=== PATIENT | male | born 1995 | race Caucasian/White ===

== ENCOUNTER → 2016-09-17 | Outpatient (CLI) | payer OTHER ==
--- NOTE | 2016-09-17 14:36 | REP ---
Chest two views HISTORY: Chest pain Comparison: None The lungs are clear. The heart is normal in size. The pulmonary vasculature is normal in appearance. The bony structure is intact. IMPRESSION: No acute disease. Signed by Casey Hanley MD 09/17/2016 02:27 P
== END ==
LOC: M WUC 12:17
PROVIDERS: ATTEND Internal Medicine
DX: R07.9 Chest pain, unspecified (principal)

== ENCOUNTER 2016-11-01 00:40 | Emergency (ER) | payer OTHER ==
[~2016-11-01] VITALS: Ht 180.3 cm; Wt 88.5 kg
[2016-11-01] MEDS ORDERED: NS 1,000 ML IV ONE (04:00)
[2016-11-01] MEDS ORDERED: KETOROLAC 30 MG/ML VIAL (J1885) IV ONE (04:00)
[2016-11-01] MEDS ORDERED: ONDANSETRON 4MG/2ML VIAL (J2405) IV ONE (04:00)
[2016-11-01 04:20] LABS: BASO % 0.1 % (0.0-1.0); EOS # 0.1 K/mm3 (0.0-0.50); EOS % 0.6 % (0.0-3.0); LARGE UNSTAINED CELL # 0.1 K/mm3 (0.0-0.4); LARGE UNSTAINED CELL % 0.5 % (0.0-4.0); LYMPH # 0.4 K/mm3 (1.5-6.5); LYMPH % 2.6 % (24.0-44.0); MEAN CORPUSCULAR HEMOGLOBIN 30.1 pg (27.0-33.0); MEAN CORPUSCULAR HGB CONC 35.8 g/dl (32.0-36.5); MEAN CORPUSCULAR VOLUME 84.2 fl (80.0-96.0); MONO # 0.4 K/mm3 (0.0-0.8); NEUTROPHILS # 12.5 K/mm3 (1.8-7.7); NEUTROPHILS % 93.1 % (36.0-66.0); PLATELET COUNT, AUTOMATED 228 k/mm3 (150-450); WHITE BLOOD COUNT 13.4 K/mm3 (4.0-10.0)
[2016-11-01 05:43] LABS: ALBUMIN 4.1 GM/DL (3.2-5.2); ALBUMIN/GLOBULIN RATIO 1.37 (1.00-1.93); ALKALINE PHOSPHATASE 71 U/L (45-117); ALT/SGPT 16 U/L (12-78); ANION GAP 9 MEQ/L (8-16); AST/SGOT 15 U/L (15-37); BILIRUBIN,DIRECT 0.1 MG/DL (0.0-0.2); BILIRUBIN,TOTAL 0.6 MG/DL (0.2-1.0); BLOOD UREA NITROGEN 21 MG/DL (7-18); CALCIUM LEVEL 8.1 MG/DL (8.5-10.1); CARBON DIOXIDE LEVEL 26 MEQ/L (21-32); CHLORIDE LEVEL 108 MEQ/L (98-107); CREATININE FOR GFR 1.35 MG/DL (0.70-1.30); GLUCOSE, FASTING 130 MG/DL (70-105); POTASSIUM SERUM 4.5 MEQ/L (3.5-5.1); SODIUM LEVEL 143 MEQ/L (136-145); TOTAL PROTEIN 7.1 GM/DL (6.4-8.2)
[2016-11-01] MEDS ORDERED: ZOFR4TAB3 PO (06:11)
[2016-11-01 06:25] VITALS: BP 132/68
== END 2016-11-01 06:26 | disposition home or self-care (01) ==
LOC: M ED 01:47
DX: A08.4 Viral intestinal infection, unspecified (principal)
CPT/HCPCS: 36415; 80048; 80076; 83690; 85025; 93041; 96361; 96374; 96375; 99284; J1885; J2405

== ENCOUNTER → 2016-12-08 | Outpatient (CLI) | payer OTHER ==
[~2016-12-08] MED LIST: ZOFR4TAB3 PO
--- NOTE | 2016-12-08 17:09 | REP ---
LEFT WRIST, FOUR VIEWS: HISTORY: Injury. There is no acute fracture or dislocation. The joint spaces are normal in appearance. IMPRESSION: There is no acute fracture or dislocation. Signed by Casey Hanley MD 12/09/2016 08:50 A
--- NOTE | 2016-12-08 17:20 | REP ---
LEFT HAND, FOUR VIEWS: HISTORY: Pain. There is no acute fracture or dislocation. The joint spaces are normal in appearance. IMPRESSION: There is no acute fracture or dislocation. Signed by Casey Hanley MD 12/09/2016 08:50 A
== END ==
LOC: M WUC 15:48
PROVIDERS: ATTEND Physician Assistant
DX: M25.542 Pain in joints of left hand (principal)

== ENCOUNTER → 2017-04-16 | Outpatient (CLI) | payer OTHER ==
[2017-04-16 09:00] LABS: BASO % 0.5 % (0.0-1.0); EOS # 0.3 K/mm3 (0.0-0.50); EOS % 6.1 % (0.0-3.0); LARGE UNSTAINED CELL # 0.1 K/mm3 (0.0-0.4); LARGE UNSTAINED CELL % 2.6 % (0.0-4.0); LYMPH # 1.9 K/mm3 (1.5-6.5); MEAN CORPUSCULAR HEMOGLOBIN 31.1 pg (27.0-33.0); MEAN CORPUSCULAR VOLUME 86.6 fl (80.0-96.0); MONO # 0.4 K/mm3 (0.0-0.8); MONO % 7.1 % (0.0-5.0); NEUTROPHILS # 2.6 K/mm3 (1.8-7.7); NEUTROPHILS % 48.7 % (36.0-66.0); PLATELET COUNT, AUTOMATED 217 k/mm3 (150-450); RED CELL DISTRIBUTION WIDTH 12.4 % (11.5-14.5); WHITE BLOOD COUNT 5.3 K/mm3 (4.0-10.0)
[2017-04-16 09:38] LABS: ALBUMIN 4.2 GM/DL (3.2-5.2); ALBUMIN/GLOBULIN RATIO 1.27 (1.00-1.93); ALKALINE PHOSPHATASE 61 U/L (45-117); ALT/SGPT 17 U/L (12-78); ANION GAP 8 MEQ/L (8-16); AST/SGOT 12 U/L (15-37); BILIRUBIN,TOTAL 0.3 MG/DL (0.2-1.0); BLOOD UREA NITROGEN 13 MG/DL (7-18); CALCIUM LEVEL 8.5 MG/DL (8.5-10.1); CARBON DIOXIDE LEVEL 27 MEQ/L (21-32); CHLORIDE LEVEL 109 MEQ/L (98-107); CREATININE FOR GFR 1.01 MG/DL (0.70-1.30); GLUCOSE, FASTING 97 MG/DL (70-105); SODIUM LEVEL 144 MEQ/L (136-145); TOTAL PROTEIN 7.5 GM/DL (6.4-8.2)
[2017-04-16 11:03] LABS: VITAMIN B12 LEVEL 494 PG/ML (247-911)
[2017-04-26 11:28] LABS: SUMMARY SEE SEPARATE REPORT
== END ==
LOC: M LAB 08:36
PROVIDERS: ATTEND Registered Nurse Psychiatric/Mental Health
DX: F41.1 Generalized anxiety disorder (principal)

== ENCOUNTER → 2017-05-18 | Outpatient (CLI) | payer OTHER ==
--- NOTE | 2017-05-18 21:34 | ECGEPIP ---
Stationary ECG Study [facility] Test Date: 2017-05-18 Pat Name: DALJIT ESPINOZA Department: Room: - Gender: M Director Of Exhibit Development: AYALA : 1995 Requested By: Raegan MARKS Order Number: [id number] Reading MD: Cj Stack Measurements Intervals [place] Rate: 61 P: 49 NV: 154 QRS: 43 QRSD: 98 T: 22 QT: 368 QTc: 373 Interpretive Statements SINUS RHYTHM EARLY REPOLARIZATION NOTED NO PRIOR TRACING IN THE SYSTEM Electronically Signed On 05-18-2017 21:34:23 EDT by Cj Stack
== END ==
LOC: M EKG 10:59
PROVIDERS: ATTEND Registered Nurse Psychiatric/Mental Health
DX: F41.1 Generalized anxiety disorder (principal)

== ENCOUNTER 2023-07-29 05:54 | Emergency (ER) | payer OTHER ==
[~2023-07-29] VITALS: Ht 180.3 cm; Wt 84.6 kg
[~2023-07-29 05:54] MED LIST changes: +ZOFR4TAB14 PO; -ZOFR4TAB3 PO
[2023-07-29] MEDS ORDERED: TIZA4CAP PO (07:23)
[2023-07-29 07:34] VITALS: BP 120/80; TEMP 96.3; O2SAT 98
== END 2023-07-29 07:39 | disposition home or self-care (01) ==
LOC: M ED 05:54
DX: S13.4XXA Sprain of ligaments of cervical spine, initial encounter (principal); V49.40XA Driver injured in collision with unspecified motor vehicles in traffic accident, initial encounter; Z79.83 Long term (current) use of bisphosphonates; Z79.899 Other long term (current) drug therapy

== ENCOUNTER 2024-08-13 08:44 | Emergency (ER) | payer OTHER ==
[~2024-08-13] VITALS: Ht 180.3 cm; Wt 90.5 kg
[~2024-08-13 08:44] MED LIST changes: +TIZA4CAP PO
[2024-08-13] MEDS ORDERED: ONDA-282 PO (09:39)
[2024-08-13] MEDS ORDERED: AMOX875T2 PO (09:39)
[2024-08-13] MEDS: AUGMENTIN 875 MG TAB PO ONE (09:44)
[2024-08-13 09:47] VITALS: BP 130/66; TEMP 97.7; O2SAT 96
== END 2024-08-13 09:48 | disposition home or self-care (01) ==
LOC: M ED 08:44
DX: J03.90 Acute tonsillitis, unspecified (principal); F90.9 Attention-deficit hyperactivity disorder, unspecified type; Z79.899 Other long term (current) drug therapy